=== PATIENT | male | born 1990 | race Caucasian/White ===

== ENCOUNTER → 2021-10-09 | Outpatient (CLI) | payer BC ==
--- NOTE | 2021-10-09 08:29 | CT ---
EXAMINATION TYPE: CT sinus wo con DATE OF EXAM: 10/09/2021 COMPARISON: None available HISTORY: Chronic sinusitis CT DLP: 596.5 mGycm. Automated Exposure Control for Dose Reduction was Utilized. TECHNIQUE: CT scan of the sinuses is performed without contrast, axial images are obtained, coronal r eformatted images are also reviewed. FINDINGS: Slightly deviated bony nasal septum convex to the right site. No significant mucosal thickening of th e nasal fossa. Paradoxical middle turbinates with pneumatization of the right vertical lamella. Unrem arkable inferior turbinates. Patent infundibulum and ostiomeatal complexes bilaterally. Right maxillary sinus polyp/retention cyst measuring 2.7 x 2.2 cm. Minimal mucosal thickening of the anterior wall of the left axillary sinus. Unremarkable maxillary sinuses otherwise. Unremarkable sphenoid sinus, frontal sinus and ethmoid air cells. Clear sphenoethmoidal recesses. Pro minent nasopharyngeal soft tissue, please correlate clinically. Unremarkable orbits. IMPRESSION: Right maxillary sinus polyp/retention cyst with minimal mucosal thickening of the left maxillary sinu s. Unremarkable remainder of the paranasal sinuses. Incidental findings as described above.
== END | disposition home or self-care (01) ==
LOC: RADCTMAIN 07:02
PROVIDERS: ATTEND Otolaryngology
DX: J32.9 Chronic sinusitis, unspecified (principal)
CPT/HCPCS: 70486

== ENCOUNTER → 2021-10-09 | Outpatient (CLI) | payer BC | END | disposition home or self-care (01) | LOC: LABWHC1 07:27 | PROVIDERS: ATTEND Otolaryngology | DX: J30.89 Other allergic rhinitis (principal) | CPT/HCPCS: 36415 ==